=== PATIENT | male | born 1950 | race Caucasian/White ===

== ENCOUNTER 2018-05-01 10:10 | Outpatient (REF) | payer MEDICARE, OTHER, SELFPAY ==
[2018-05-01 22:05] LABS: BUN 21 mg/dL (7-18); CREATININE 1.42 mg/dL (0.70-1.30); Calcium 8.5 mg/dL (8.5-10.1); Chloride 100 mmol/L (98-107); Estimated GFR 49.88 (mL/min/1.73m2); Glucose 100 mg/dL (70-100); Sodium 137 mmol/L (136-145)
[2018-05-01 22:16] LABS: Hemoglobin A1C 5.9 % (4.5-6.2)
== END 2018-05-01 10:30 ==
LOC: LBO 10:10
PROVIDERS: Visit Provider Family Medicine
DX: I10 Essential (primary) hypertension (principal); R73.02 Impaired glucose tolerance (oral)
CPT/HCPCS: 80048; 83036

== ENCOUNTER 2019-03-28 12:25 | Outpatient (REF) | payer MEDICARE, OTHER, SELFPAY ==
[2019-03-28 22:06] LABS: ALT 26 U/L (12-78); AST 26 U/L (15-37); Albumin 3.3 g/dL (3.4-5.0); Alkaline Phosphatase 61 U/L (46-116); Anion Gap 8.6 mmol/L (3-11); BUN 17 mg/dL (7-18); Bilirubin, Total 0.3 mg/dL (0.2-1.0); CO2 30.4 mmol/L (21.0-32.0); CREATININE 1.26 mg/dL (0.70-1.30); Calcium 8.8 mg/dL (8.5-10.1); Calculated LDL 107 mg/dL; Chloride 100 mmol/L (98-107); Cholesterol 178 mg/dL (50-200); Estimated GFR 57.08 (mL/min/1.73m2); Glucose 89 mg/dL (70-100); HDL Cholesterol 60 mg/dL (40-60); Potassium 4.7 mmol/L (3.5-5.1); Sodium 139 mmol/L (136-145); Total Protein 7.1 g/dL (6.4-8.2); Triglyceride 59 mg/dL (30-150)
== END 2019-03-28 12:45 ==
LOC: NCHCN 12:25
PROVIDERS: Visit Provider Family Medicine
DX: I10 Essential (primary) hypertension (principal); E66.9 Obesity, unspecified
CPT/HCPCS: 80053; 80061; 83721